=== PATIENT | female | born 1950 | race Caucasian/White ===

== ENCOUNTER 2016-09-07 21:55 | Observation (INO) | payer BC ==
[2016-09-07] MEDS ORDERED: Ondansetron 4 MG Tab.DIS PO ONE (22:16)
[2016-09-07] MEDS ORDERED: Morphine 4 MG/ML Syringe IM ONE (22:16)
--- NOTE | 2016-09-07 22:17 | EDM.PDOC ---
ED HPI GENERAL MEDICAL PROBLEM - General Chief Complaint: Abdominal Pain Stated Complaint: left lower pelvic area pain Time Seen by Provider: 09/07/16 22:05 Source of Information: Reports: Patient History Limitations: Reports: No Limitations - History of Present Illness INITIAL COMMENTS - FREE TEXT/NARRATIVE: This patient is a 66 year old female that presents to the ER. Patient reports that yesterday she started with mild left lower abdominal pain and mild bladder burning. She reports that then this evening around 6:30pm she developed left flank pain, left lower abdominal pain, and more moderate bladder burning. She reports that nothing makes the pain better or worse. She reports some mild nausea. The patient denies pollard, dizziness, neck pain, neck stiffness, congestion , drainage, cough, cp, soa, bowel changes, urinary changes. She reports that she had a regular BM today without blood. reports she has been urinating as she normally does, other than "bladder burning, hard to explain." Patient has daughter at bedside. Patient is laying in the stretcher. Onset Date: 09/06/16 Duration: Getting Worse, Intermittent Location: Reports: Abdomen Front/Back Body Image: 1 - pain Quality: Reports: Burning Severity: Moderate Improves with: Reports: None Worsens with: Reports: None Associated Symptoms: Reports: Nausea/Vomiting. Denies: Confusion, Chest Pain, Cough, cough w sputum, Diaphoresis, Fever/Chills, Headaches, Loss of Appetite, Malaise, Rash, Seizure, Shortness of Breath, Syncope, Weakness Treatments FACULTY HEAD: Reports: NSAIDS, Other Medication(s) Left Lower Pelvic Pain Score (Numeric/FACES): 10 - Related Data Allergies Allergy/AdvReac Type Severity Reaction Status Date / Time cyclobenzaprine HCl Allergy Cannot Verified 09/07/16 22:02 [From Flexeril] Remember fexofenadine HCl Allergy Cannot Verified 09/07/16 22:02 [From Telma] Remember trazodone Allergy Cannot Verified 09/07/16 22:02 Remember Home Meds: Home Meds Aspirin [Low Dose Aspirin EC] 81 mg PO DAILY 04/14/15 [History] Cholecalciferol (Vitamin D3) [Vitamin D] 2,000 unit PO DAILY 04/14/15 [History] Estropipate 0.75 mg PO DAILY 04/14/15 [History] Fluticasone Propionate [Flonase] 1 spray NASBOTH DAILY 04/14/15 [History] Gabapentin [Neurontin] 600 mg PO QID 04/14/15 [History] Loratadine [Claritin] 10 mg PO DAILY PRN 04/14/15 [History] Magnesium 250 mg PO DAILY 04/14/15 [History] Metaxalone [Skelaxin] 800 mg PO Q8H PRN 04/14/15 [History] Multivitamin [Multi-Day Vitamins] 1 tab PO DAILY 04/14/15 [History] Pantoprazole Sodium 40 mg PO DAILY 04/14/15 [History] Sennosides/Docusate Sodium [Stool Softener] 1 tab PO DAILY PRN 04/14/15 [History ] Temazepam 30 mg PO BEDTIME 04/14/15 [History] Vitamin B Complex [B Complex] 1 tab PO DAILY 04/14/15 [History] traMADol HCl [Ultram] 100 mg PO QID 04/14/15 [History] ED ROS GENERAL - Review of Systems Review Of Systems: See Below Constitutional: Denies: Fever, Malaise, Weakness, Fatigue, Diaphoresis HEENT: Reports: No Symptoms Respiratory: Reports: No Symptoms. Denies: Shortness of Breath Cardiovascular: Reports: No Symptoms. Denies: Chest Pain, Dyspnea on Exertion, Edema, Lightheadedness, Palpitations, Syncope Endocrine: Reports: No Symptoms GI/Abdominal: Reports: Abdominal Pain (LLQ), Nausea. Denies: Constipation, Diarrhea, Difficulty Swallowing, Hematemesis, Stool Incontinence, Vomiting : Reports: Flank Pain (left), Other ("bladder burning") Musculoskeletal: Reports: Back Pain (chronic, no changes for years. ) Skin: Reports: No Symptoms Neurological: Reports: No Symptoms. Denies: Confusion, Dizziness, Headache, Syncope Psychiatric: Reports: No Symptoms Hematologic/Lymphatic: Reports: No Symptoms Immunologic: Reports: No Symptoms ED EXAM, GI/ABD - Physical Exam Exam: See Below Exam Limited By: No Limitations General Appearance: Alert, WD/WN, No Apparent Distress Eyes: Bilateral: Normal Appearance Ears: Normal External Exam, Normal Canal, Hearing Grossly Normal, Normal TMs Nose: Normal Inspection, Normal Mucosa, No Blood Throat/Mouth: Normal Inspection, Normal Lips, Normal Teeth, Normal Gums, Normal Oropharynx, Normal Voice, No Airway Compromise Head: Atraumatic, Normocephalic Neck: Normal Inspection, Supple, Non-Tender, Full Range of Motion Respiratory/Chest: No Respiratory Distress, Lungs Clear, Normal Breath Sounds, No Accessory Muscle Use Cardiovascular: Normal Peripheral Pulses, Regular Rate, Rhythm, No Edema, No Gallop, No JVD, No Murmur, No Rub GI/Abdominal Exam: Normal Bowel Sounds, Soft, No Organomegaly, No Distention, No Abnormal Bruit, No Mass, Pelvis Stable, Tender (LLQ, over bladder. ) Back Exam: Normal Inspection, Full Range of Motion, CVA Tenderness (L) (mild) Extremities: Normal Inspection, Normal Range of Motion, Non-Tender, No Pedal Edema, Normal Capillary Refill Neurological: Alert, Oriented, Normal Cognition, Normal Gait, No Motor/Sensory Deficits Psychiatric: Normal Affect, Normal Mood Skin Exam: Warm, Dry, Intact, Normal Color, No Rash Lymphatic: No Adenopathy Course - Vital Signs Last Recorded V/S: Last Vital Signs Temp 96.1 F 09/07/16 22:43 Pulse 84 09/07/16 22:43 Resp 16 09/07/16 22:43 BP 142/87 H 09/07/16 22:43 Pulse Ox 100 09/07/16 22:43 - Orders/Labs/Meds Orders: Active Orders 24 hr Category Date Time Status Abdomen Pelvis wo Cont [CT] Routine Exams 09/07/16 Taken Abdomen Pelvis wo Cont [CT] Stat Exams 09/07/16 22:46 Stop Req Abdomen Pelvis wo Cont [CT] Stat Exams 09/07/16 23:05 Ordered CULTURE BLOOD [BC] Stat Lab 09/07/16 22:25 Received CULTURE BLOOD [BC] Stat Lab 09/07/16 22:30 Received CULTURE URINE [RM] Stat Lab 09/07/16 22:30 Received Blood Culture x2 Reflex Set [OM.PC] Stat Oth 09/07/16 22:13 Ordered Labs: Laboratory Tests 09/07/16 09/07/16 09/07/16 Range/Units 22:25 22:25 22:25 WBC 8.5 (5.0-10.0) 10^3/uL RBC 4.70 (4.00-5.50) 10^6/uL Hgb 14.0 (12.0-16.0) g/dL Hct 42.8 (37.0-47.0) % MCV 91.1 (82.0-94.0) fL MCH 29.8 (27.0-32.0) pg MCHC 32.7 L (33.0-38.0) g/dL RDW Coeff of Gama 13.8 (11.0-15.0) % Plt Count 238 (150-400) 10^3/uL Neut % (Auto) 68.5 (35-85) % Lymph % (Auto) 19.0 (10-55) % Roosevelt % (Auto) 9.6 (0-16) % Eos % (Auto) 2.3 (0-5) % Baso % (Auto) 0.6 (0-3) % Neut # (Auto) 5.85 (1.80-7.00) 10^3/uL Lymph # (Auto) 1.62 (1.00-4.80) 10^3/uL Roosevelt # (Auto) 0.82 H (0.00-0.80) 10^3/uL Eos # (Auto) 0.20 (0.00-0.45) 10^3/uL Baso # (Auto) 0.05 10^3/uL Sodium 139 (136-145) mEq/L Potassium 3.8 (3.5-5.0) mEq/L Chloride 102 (98-106) mEq/L Carbon Dioxide 29 (21-32) mmol/L BUN 23 H D (7-18) mg/dL Creatinine 1.2 H D (0.6-1.0) mg/dL Est Cr Clr Drug Dosing TNP Estimated GFR (MDRD) 45 L (>=60) mL/min Glucose 144 H D (75-99) mg/dL Lactic Acid 1.2 (0.4-2.0) mmol/L Calcium 9.6 (8.4-10.1) mg/dL Total Bilirubin 0.2 (0.0-1.0) mg/dL AST 10 L (15-37) U/L ALT 19 (12-78) U/L Alkaline Phosphatase 126 H (46-116) U/L Total Protein 7.0 (6.4-8.2) g/dL Albumin 3.4 (3.4-5.0) g/dL Urine Color (YELLOW) Urine Appearance (CLEAR) Urine pH (4.5-8.0) Ur Specific Wing[place] (1.003-1.020) Urine Protein (NEGATIVE) mg/dL Urine Glucose (UA) (NEGATIVE) mg/dL Urine Ketones (NEGATIVE) mg/dL Urine Occult Blood (NEGATIVE) Urine Nitrite (NEGATIVE) Urine Bilirubin (NEGATIVE) Urine Urobilinogen (0.2-1.0) EU/dL Ur Leukocyte Esterase (NEGATIVE) 09/07/16 Range/Units 22:25 WBC (5.0-10.0) 10^3/uL RBC (4.00-5.50) 10^6/uL Hgb (12.0-16.0) g/dL Hct (37.0-47.0) % MCV (82.0-94.0) fL MCH (27.0-32.0) pg MCHC (33.0-38.0) g/dL RDW Coeff of Gama (11.0-15.0) % Plt Count (150-400) 10^3/uL Neut % (Auto) (35-85) % Lymph % (Auto) (10-55) % Roosevelt % (Auto) (0-16) % Eos % (Auto) (0-5) % Baso % (Auto) (0-3) % Neut # (Auto) (1.80-7.00) 10^3/uL Lymph # (Auto) (1.00-4.80) 10^3/uL Roosevelt # (Auto) (0.00-0.80) 10^3/uL Eos # (Auto) (0.00-0.45) 10^3/uL Baso # (Auto) 10^3/uL Sodium (136-145) mEq/L Potassium (3.5-5.0) mEq/L Chloride (98-106) mEq/L Carbon Dioxide (21-32) mmol/L BUN (7-18) mg/dL Creatinine (0.6-1.0) mg/dL Est Cr Clr Drug Dosing Estimated GFR (MDRD) (>=60) mL/min Glucose (75-99) mg/dL Lactic Acid (0.4-2.0) mmol/L Calcium (8.4-10.1) mg/dL Total Bilirubin (0.0-1.0) mg/dL AST (15-37) U/L ALT (12-78) U/L Alkaline Phosphatase (46-116) U/L Total Protein (6.4-8.2) g/dL Albumin (3.4-5.0) g/dL Urine Color Light yellow (YELLOW) Urine Appearance Slightly cloudy (CLEAR) Urine pH 7.5 (4.5-8.0) Ur Specific [place] 1.012 (1.003-1.020) Urine Protein Negative (NEGATIVE) mg/dL Urine Glucose (UA) Negative (NEGATIVE) mg/dL Urine Ketones Negative (NEGATIVE) mg/dL Urine Occult Blood Moderate H (NEGATIVE) Urine Nitrite Negative (NEGATIVE) Urine Bilirubin Negative (NEGATIVE) Urine Urobilinogen 0.2 (0.2-1.0) EU/dL Ur Leukocyte Esterase Trace H (NEGATIVE) Meds: Medications Discontinued Medications Generic Name Dose Route Start Last Admin Trade Name Freq PRN Reason Stop Dose Admin Sodium Chloride 1,000 mls @ 1,000 mls/hr 09/07/16 22:46 09/07/16 23:19 Normal Saline IV 09/07/16 23:45 1,000 mls/hr .BOLUS ONE Administration Morphine Sulfate 4 mg 09/07/16 22:16 09/07/16 22:28 Morphine IM 09/07/16 22:17 4 mg ONETIME ONE Administration Morphine Sulfate 4 mg 09/07/16 23:00 09/07/16 23:20 Morphine IVPUSH 09/07/16 23:01 4 mg ONETIME ONE Administration Ondansetron HCl 4 mg 09/07/16 22:16 09/07/16 22:28 Zofran Odt PO 09/07/16 22:17 4 mg ONETIME ONE Administration Ondansetron HCl 4 mg 09/07/16 23:00 09/07/16 23:22 Zofran IVPUSH 09/07/16 23:01 4 mg NOW STA Administration - Radiology Interpretation Free Text/Narrative:: Renal CT without contrast: Discussed with radiologist: Left UVJ 3.9mm ureter stone with moderate hydronephrosis. CT Results Date: 09/08/16 CT Results Time: 00:00 Departure - Departure Time of Disposition: 00:03 Disposition: Refer to Observation Condition: Fair Clinical Impression: Ureteral stone, Renal insufficiency Hydronephrosis Qualifiers: Hydronephrosis type: with ureteral calculous obstruction Qualified Code(s): N13.2 - Hydronephrosis with renal and ureteral calculous obstruction Urinary tract infection Qualifiers: Urinary tract infection type: acute cystitis Hematuria presence: with hematuria Qualified Code(s): N30.01 - Acute cystitis with hematuria - Discharge Information Forms: ED Department Discharge - My Orders Last 24 Hours: My Active Orders 09/07/16 Abdomen Pelvis wo Cont [CT] Routine 09/07/16 22:13 Blood Culture x2 Reflex Set [OM.PC] Stat 09/07/16 22:25 CULTURE BLOOD [BC] Stat 09/07/16 22:30 CULTURE BLOOD [BC] Stat CULTURE URINE [RM] Stat 09/07/16 22:46 Abdomen Pelvis wo Cont [CT] Stat 09/07/16 23:05 Abdomen Pelvis wo Cont [CT] Stat - Assessment/Plan Last 24 Hours: My Active Orders 09/07/16 Abdomen Pelvis wo Cont [CT] Routine 09/07/16 22:13 Blood Culture x2 Reflex Set [OM.PC] Stat 09/07/16 22:25 CULTURE BLOOD [BC] Stat 09/07/16 22:30 CULTURE BLOOD [BC] Stat CULTURE URINE [RM] Stat 09/07/16 22:46 Abdomen Pelvis wo Cont [CT] Stat 09/07/16 23:05 Abdomen Pelvis wo Cont [CT] Stat Plan: PLEASE SEE RN NOTE FOR PFSH. PLEASE USE ER H&P FOR ADMIT H&P. I discussed with the patient the option for admission. I believe this would be the best option for this patient. As she has UTI, ureter stone, hydronephrosis, flank pain, nausea, and renal insufficiency. We will admit for pain control, abx treatment, and fluids. The patient and the daughter agree with admission. Will admit.
[2016-09-07 22:44] LABS: CHLORIDE,CL 102 mEq/L (98-106); SODIUM,NA 139 mEq/L (136-145)
[2016-09-07] MEDS ORDERED: Sodium Chloride 0.9% 1,000 ML IV ONE (22:46)
[2016-09-07] MEDS ORDERED: Ondansetron 4 MG/2 ML SDV IVPUSH STA (23:00)
[2016-09-07] MEDS ORDERED: Morphine 4 MG/ML Syringe IVPUSH ONE (23:00)
[2016-09-08] MEDS ORDERED: cefTRIAXone 1 GM Vial IVPUSH ONE
[2016-09-08] MEDS ORDERED: Tamsulosin 0.4 MG Cap.ER PO ONE (00:01)
[2016-09-08] MEDS ORDERED: HYDROmorphone 1 MG/ML Syringe IVPUSH ONE (00:01)
[2016-09-08] MEDS ORDERED: Ondansetron 4 MG/2 ML SDV IV PRN (00:45)
[2016-09-08] MEDS ORDERED: oxyCODONE 5 MG Tab PO PRN (00:45)
[2016-09-08] MEDS ORDERED: Acetaminophen 325 MG Tab PO PRN (00:45)
[2016-09-08] MEDS ORDERED: HYDROmorphone 1 MG/ML Syringe IVPUSH PRN (00:45)
[2016-09-08] MEDS ORDERED: Enoxaparin 30 MG/0.3 ML Syringe SUBCUT SCH (00:45)
[2016-09-08] MEDS ORDERED: LORATADINE 10 MG PO PRN (00:45)
[2016-09-08] MEDS ORDERED: Sodium Chloride 0.9% 1,000 ML IV SCH (00:45)
[2016-09-08] MEDS ORDERED: SKELAXIN 800 MG PO PRN (01:30)
[2016-09-08] MEDS ORDERED: Docusate Sodium/Sennosides 50-8.6 MG Tab**OWN MED PO PRN (01:45)
[2016-09-08] MEDS ORDERED: Pantoprazole 40 MG Tab.CR**OWN MED PO SCH (07:00)
[2016-09-08 07:17] LABS: CHLORIDE,CL 105 mEq/L (98-106); SODIUM,NA 139 mEq/L (136-145)
[2016-09-08] MEDS ORDERED: Fluticasone Propionate Nasal Spray 16 GM Bottle**OWN MED NASBOTH SCH (08:00)
[2016-09-08] MEDS ORDERED: Gabapentin 300 MG Cap**OWN MED PO SCH (08:00)
[2016-09-08] MEDS ORDERED: Aspirin 81 MG Tab.EC**OWN MED PO SCH (08:00)
[2016-09-08] MEDS ORDERED: Multivitamin Tab**OWN MED PO SCH (08:00)
[2016-09-08] MEDS ORDERED: VITAMIN B COMPLEX PO SCH (08:00)
[2016-09-08] MEDS ORDERED: MAGNESIUM OXIDE 250 MG PO SCH (08:00)
[2016-09-08] MEDS ORDERED: ESTROPIPATE 0.75 MG PO SCH (08:00)
[2016-09-08] MEDS ORDERED: Cholecalciferol (Vitamin D3) 1,000 Unit Tab**OWN MED PO SCH (08:00)
[2016-09-08 08:44] VITALS: BP 138/76
[2016-09-08] MEDS ORDERED: Promethazine 25 MG Tab PO STA (08:58)
[2016-09-08] MEDS: traMADol 50 MG Tab**OWN MED PO SCH ×2 (09:13→11:40)
[2016-09-08] MEDS ORDERED: GABAPENTIN 600 MG PO SCH (11:38)
--- NOTE | 2016-09-08 14:22 | PCM.DCSUM1 ---
Discharge Summary - Hospital Course HPI Initial Comments: This patient is a 66 year old female that was admitted late last night from the ER. The patient had a 3.9mm stone left uvj. The patient had some mild renal insufficiency and pain with her ureter stone. Today the patient is pain free. She reports some nausea earlier, was given phenergan and is now resting quietly. The patient renal function has improved today. The patient does report she is ready to go home. The patient admit CR was 1.2, today is 0.7, and her BUn admit was 23, today it is 19. She is much improved. While a stone was not seen by RN with straining, I believe she has possibly passed her stone or it is in the bladder. Therefore, with improved renal function and pain, I will discharge the patient home. - Discharge Data Discharge Date: 09/08/16 Discharge Disposition: Home, Self-Care 01 Condition: Good - Patient Instructions Diet: Usual Diet as Tolerated Activity: As Tolerated Showering/Bathing: May Shower Notify Provider of: Fever, Increased Pain, Nausea and/or Vomiting - Discharge Plan Home Medications: Home Meds Aspirin [Low Dose Aspirin EC] 81 mg PO DAILY 04/14/15 [History] Cholecalciferol (Vitamin D3) [Vitamin D3] 2,000 unit PO DAILY 04/14/15 [History] Estropipate 0.75 mg PO DAILY 04/14/15 [History] Fluticasone Propionate [Flonase] 1 spray NASBOTH DAILY 04/14/15 [History] Gabapentin [Neurontin] 600 mg PO QID 04/14/15 [History] Loratadine [Claritin] 10 mg PO DAILY PRN 04/14/15 [History] Magnesium 250 mg PO DAILY 04/14/15 [History] Metaxalone [Skelaxin] 800 mg PO Q8H PRN 04/14/15 [History] Multivitamin [Multi-Day Vitamins] 1 tab PO DAILY 04/14/15 [History] Pantoprazole Sodium 40 mg PO DAILY 04/14/15 [History] Sennosides/Docusate Sodium [Stool Softener] 1 tab PO DAILY PRN 04/14/15 [History ] Temazepam 30 mg PO BEDTIME 04/14/15 [History] Vitamin B Complex [B Complex] 1 tab PO DAILY 04/14/15 [History] traMADol HCl [Ultram] 100 mg PO QID 04/14/15 [History] Forms: ED Department Discharge Referrals: Leonel Braun MD [Primary Care Provider] - - Discharge Summary/Plan Comment DC Time >30 min.: No Discharge Summary/Plan Comment: Followup with your primary care provider Return to the ER for worsening of condition or any emergent concerns Increase fluids Keflex 500mg 1 pill three times a day for 5 days #15 no refill - General Info Functional Status: Reports: Pain Controlled - Review of Systems General: Reports: No Symptoms HEENT: Reports: No Symptoms Pulmonary: Reports: No Symptoms Cardiovascular: Reports: No Symptoms Gastrointestinal: Reports: No Symptoms Genitourinary: Reports: No Symptoms Musculoskeletal: Reports: No Symptoms Skin: Reports: No Symptoms Neurological: Reports: No Symptoms Psychiatric: Reports: No Symptoms - Patient Data Vitals - Most Recent: Last Vital Signs Temp 96.4 F 09/08/16 08:00 Pulse 82 09/08/16 08:00 Resp 18 09/08/16 08:00 BP 138/76 09/08/16 08:00 Pulse Ox 95 09/08/16 08:00 Weight - Most Recent: 201 lb 8 oz I&O - Last 24 hours: Intake & Output 09/07/16 09/08/16 09/08/16 22:59 06:59 14:59 Intake Total 250 Balance 250 Lab Results - Last 24 hrs: Laboratory Results - last 24 hr 09/08/16 09/08/16 Range/Units 07:00 07:00 WBC 8.6 (5.0-10.0) 10^3/uL RBC 4.66 (4.00-5.50) 10^6/uL Hgb 13.7 (12.0-16.0) g/dL Hct 42.5 (37.0-47.0) % MCV 91.2 (82.0-94.0) fL MCH 29.4 (27.0-32.0) pg MCHC 32.2 L (33.0-38.0) g/dL RDW Coeff of Gama 13.8 (11.0-15.0) % Plt Count 234 (150-400) 10^3/uL Neut % (Auto) 77.0 (35-85) % Lymph % (Auto) 15.1 (10-55) % Porter % (Auto) 7.5 (0-16) % Eos % (Auto) 0.2 (0-5) % Baso % (Auto) 0.2 (0-3) % Neut # (Auto) 6.58 (1.80-7.00) 10^3/uL Lymph # (Auto) 1.29 (1.00-4.80) 10^3/uL Porter # (Auto) 0.64 (0.00-0.80) 10^3/uL Eos # (Auto) 0.02 (0.00-0.45) 10^3/uL Baso # (Auto) 0.02 10^3/uL Sodium 139 (136-145) mEq/L Potassium 4.4 (3.5-5.0) mEq/L Chloride 105 (98-106) mEq/L Carbon Dioxide 30 (21-32) mmol/L BUN 19 H (7-18) mg/dL Creatinine 0.7 (0.6-1.0) mg/dL Est Cr Clr Drug Dosing 61.27 mL/min Estimated GFR (MDRD) > 60 (>=60) mL/min Glucose 125 H (75-99) mg/dL Calcium 8.9 (8.4-10.1) mg/dL Med Orders - Current: Current Medications Acetaminophen (Tylenol) 650 mg PO Q4H PRN PRN Reason: Pain (Mild 1-3)/fever Aspirin (Halfprin) 81 mg PO DAILY [facility] Last Admin: 09/08/16 09:10 Dose: Not Given Ceftriaxone Sodium (Rocephin) 1 gm IVPUSH Q24H [facility] Cholecalciferol (Vitamin D3) 2,000 units PO DAILY [facility] Last Admin: 09/08/16 09:13 Dose: Not Given Enoxaparin Sodium (Lovenox) 30 mg SUBCUT Q24H [facility] Last Admin: 09/08/16 01:01 Dose: 30 mg Fluticasone Propionate (Flonase) 0 gm NASBOTH DAILY [facility] Last Admin: 09/08/16 09:10 Dose: Not Given Hydromorphone HCl (Dilaudid) 0.5 mg IVPUSH Q2H PRN PRN Reason: Pain (severe 7-10) Last Admin: 09/08/16 04:14 Dose: 0.5 mg Loratadine (Claritin) 10 mg PO DAILY PRN PRN Reason: Allergies Magnesium Oxide (Magnesium Oxide) 250 mg PO DAILY [facility] Last Admin: 09/08/16 09:11 Dose: Not Given Multivitamins/Minerals/Vitamin C (Tab-A-Manuela) 1 tab PO DAILY [facility] Last Admin: 09/08/16 09:12 Dose: Not Given Gabapentin 600 Mg (CapOwn Med) 1 each PO QID [facility] Last Admin: 09/08/16 11:40 Dose: 1 each Ondansetron HCl (Zofran) 4 mg IV Q6H PRN PRN Reason: Nausea/Vomiting Last Admin: 09/08/16 07:30 Dose: 4 mg Oxycodone HCl (Oxycodone) 5 mg PO Q4H PRN PRN Reason: Pain (moderate 4-6) Pantoprazole Sodium (Protonix) 40 mg PO ACBREAKFAST [facility] Last Admin: 09/08/16 06:54 Dose: Not Given Patient's Own Medication Estropipate 0.75 Mg* * 1 each PO DAILY [facility] Last Admin: 09/08/16 09:12 Dose: Not Given Patient's Own MedicationSkelaxin 800 Mg 1 each PO Q8H PRN PRN Reason: Muscle Spasm Patient's Own Medication Temazepam 30 Mg 1 each PO BEDTIME [facility] Senna/Docusate Sodium (Senna Plus) 1 tab PO DAILY PRN PRN Reason: Constipation Tramadol HCl (Ultram) 100 mg PO QID [facility] Last Admin: 09/08/16 11:40 Dose: 100 mg Vitamin B Complex (Vitamin B Complex) 1 each PO DAILY [facility] Last Admin: 09/08/16 09:13 Dose: Not Given Discontinued Medications Ceftriaxone Sodium (Rocephin) 1 gm IVPUSH ONETIME ONE Stop: 09/08/16 00:01 Last Admin: 09/08/16 00:20 Dose: 1 gm Gabapentin (Neurontin) 600 mg PO QID [facility] Last Admin: 09/08/16 09:14 Dose: Not Given Hydromorphone HCl (Dilaudid) 1 mg IVPUSH ONETIME ONE Stop: 09/08/16 00:02 Last Admin: 09/08/16 00:29 Dose: 1 mg Sodium Chloride (Normal Saline) 1,000 mls @ 1,000 mls/hr IV .BOLUS ONE Stop: 09/07/16 23:45 Last Admin: 09/07/16 23:19 Dose: 1,000 mls/hr Sodium Chloride (Normal Saline) 1,000 mls @ 125 mls/hr IV ASDIRECTED MARIA ESTHER Stop: 09/08/16 09:00 Last Admin: 09/08/16 01:02 Dose: 125 mls/hr Morphine Sulfate (Morphine) 4 mg IM ONETIME ONE Stop: 09/07/16 22:17 Last Admin: 09/07/16 22:28 Dose: 4 mg Morphine Sulfate (Morphine) 4 mg IVPUSH ONETIME ONE Stop: 09/07/16 23:01 Last Admin: 09/07/16 23:20 Dose: 4 mg Ondansetron HCl (Zofran Odt) 4 mg PO ONETIME ONE Stop: 09/07/16 22:17 Last Admin: 09/07/16 22:28 Dose: 4 mg Ondansetron HCl (Zofran) 4 mg IVPUSH NOW STA Stop: 09/07/16 23:01 Last Admin: 09/07/16 23:22 Dose: 4 mg Promethazine HCl (Phenergan) 12.5 mg PO NOW STA Stop: 09/08/16 08:59 Last Admin: 09/08/16 09:17 Dose: 12.5 mg Tamsulosin HCl (Flomax) 0.4 mg PO ONETIME ONE Stop: 09/08/16 00:02 Last Admin: 09/08/16 00:19 Dose: 0.4 mg - Exam General: Reports: Alert, Oriented, Cooperative, No Acute Distress Lungs: Reports: Clear to Auscultation, Normal Respiratory Effort Cardiovascular: Reports: Regular Rate, Regular Rhythm GI/Abdominal Exam: Normal Bowel Sounds, Soft, Non-Tender, No Organomegaly, No Distention, No Abnormal Bruit, No Mass, Pelvis Stable Back Exam: Reports: Normal Inspection, Full Range of Motion. Denies: CVA Tenderness (L), CVA Tenderness (R) Extremities: Normal Inspection, Normal Range of Motion, Non-Tender, No Pedal Edema, Normal Capillary Refill Skin: Reports: Warm, Dry, Intact Neurological: Reports: No New Focal Deficit Psy/Mental Status: Reports: Alert, Normal Affect, Normal Mood *Q Meaningful Use (DIS) - VTE *Q VTE Criteria *Q: - Stroke *Q Stroke Criteria *Q: - AMI *Q AMI Criteria *Q:
[2016-09-08] MEDS ORDERED: Take Home: Cephalexin 500 MG Cap, 4 Cap Pack PO ONE (14:28)
[2016-09-08] MEDS ORDERED: cefTRIAXone 1 GM Vial IVPUSH SCH ×2 (14:30→20:00)
[2016-09-08] MEDS ORDERED: TEMAZEPAM 30 MG PO SCH (20:00)
== END 2016-09-08 15:23 | disposition home or self-care (01) ==
LOC: CC.ED 21:55 → CC.MS 09-08 00:40 → UNDOADMOB 09-08 00:40 → CC.MS 09-08 00:45 → UNDODISOB 09-08 15:23
PROVIDERS: ADMIT Nurse Practitioner; ATTEND General Practice
DX: N13.2 Hydronephrosis with renal and ureteral calculous obstruction (principal); N30.01 Acute cystitis with hematuria; N28.9 Disorder of kidney and ureter, unspecified; Z79.82 Long term (current) use of aspirin; Z79.899 Other long term (current) drug therapy
CPT/HCPCS: 36415; 74176; 80048; 80053; 81003; 83605; 85025; 87040; 87086; 96361; 96372; 96374; 96375; 99285; A9270; J0696; J1170; J1650; J2270; J2405; J7030; 96376; G0378